=== PATIENT | male | born 1965 | race Caucasian/White ===

== ENCOUNTER 2016-09-06 10:34 | Outpatient (CLI) | payer OTHER ==
--- NOTE | 2016-09-06 11:51 | DIAGNOSTIC IMAGING REPORT ---
PROCEDURE: XR LUMBAR SPINE 2 OR 3 VIEWS INDICATION: LUMBAR RADICULPATHY TECHNIQUE: Three views. COMPARISON: None. FINDINGS: There is mild spondylosis with slight disc space narrowing at L4-5. There is also disc space narrowing and spur formation at T11-12. No evidence of an acute process or fracture. IMPRESSION: 1. Mild spondylosis L4-5
== END 2016-09-06 23:00 ==
LOC: XR SRH 10:34
DX: M47.816 Spondylosis without myelopathy or radiculopathy, lumbar region (principal)

== ENCOUNTER 2016-09-16 08:57 | Outpatient (CLI) | payer OTHER ==
--- NOTE | 2016-09-16 09:15 | DIAGNOSTIC IMAGING REPORT ---
PROCEDURE: XR URBINA VIEW MRI SCREENING INDICATION: LUMBAR RADICULPATHY TECHNIQUE: Water's view COMPARISON: None. FINDINGS: No evidence of a radiopaque foreign body projecting over the orbits. Bones are unremarkable. Normal paranasal sinuses. IMPRESSION: 1. Normal study
--- NOTE | 2016-09-16 11:40 | DIAGNOSTIC IMAGING REPORT ---
PROCEDURE: MR LUMBAR SPINE W/O CONTRAST INDICATION: LUMBAR RADICULPATHY TECHNIQUE: Noncontrast T1, T2, and STIR sagittal images. T1 and T2 axial images. COMPARISON: None. FINDINGS: L1-2: Normal. L2-3: Normal. L3-4: Normal. L4-5: Normal. L5-S1: Herniated nucleus pulposus on the left. There is compression of the thecal sac on the left. IMPRESSION: 1. Herniated nucleus pulposus L5-S1 on the left
== END 2016-09-16 23:00 ==
LOC: MRI SRH 08:57
DX: M51.27 Other intervertebral disc displacement, lumbosacral region (principal)